=== PATIENT | male | born 1975 | race Caucasian/White ===

== ENCOUNTER 2017-03-31 23:02 | Emergency (ER) | payer MEDICAID ==
[~2017-03-31] VITALS: Ht 177.8 cm; Wt 98.2 kg
[~2017-03-31 23:02] MED LIST: CITA10TA8 PO; EMTR1TAB12 PO; RAYTAZ; RITO100C PO; Z PAK
[2017-03-31] MEDS ORDERED: SODIUM CHLORIDE 0.9% 1,000 ML IV ONE (23:53)
[2017-03-31] MEDS ORDERED: HYDROmorphone 1 MG/ML, 1ML ONE (23:56)
[2017-03-31] MEDS ORDERED: ONDANSETRON 2MG/ML, 2ML ONE (23:56)
[2017-04-01] MEDS ORDERED: SODIUM CHLORIDE FLUSH 10ML SYR IVF ONE
[2017-04-01] MEDS ORDERED: SODIUM CHLORIDE 0.9% 1,000ML IVBOLUS ONE
[2017-04-01] MEDS ORDERED: ONDANSETRON 2MG/ML, 2ML IVPush ONE
[2017-04-01] MEDS: HYDROmorphone 1 MG/ML, 1ML IVPush PRN ×2 (00:11→01:23)
[2017-04-01 00:27] LABS: ASPARTATE AMINO TRANSFERASE 23 U/L (15-37); BLOOD UREA NITROGEN 20 mg/dL (7-18)
[2017-04-01] MEDS ORDERED: HYDROmorphone 1 MG/ML, 1ML ONE ×2 (01:24→03:58)
[2017-04-01] MEDS ORDERED: OMNIPAQUE 350 MG/ML, 100ML BOTTLE ONE (03:11)
[2017-04-01] MEDS ORDERED: HYDROmorphone 1 MG/ML, 1ML IVPush PRN (04:00)
[2017-04-01 05:43] VITALS: BP 106/79
== END 2017-04-01 05:46 | disposition home or self-care (01) ==
LOC: ED 04-01 05:26
DX: K52.29 Other allergic and dietetic gastroenteritis and colitis (principal); F17.200 Nicotine dependence, unspecified, uncomplicated; Z88.1 Allergy status to other antibiotic agents
CPT/HCPCS: 36415; 74022; 74177; 76700; 80053; 81003; 83605; 83690; 85025; 96361; 96374; 96375; 96376; 99285; J1170; J2405; J7030; Q9967

== ENCOUNTER 2017-05-09 12:47 | Emergency (ER) | payer MEDICAID ==
[~2017-05-09] VITALS: Ht 177.8 cm; Wt 95.8 kg
[2017-05-09 12:52] VITALS: BP 134/93
[2017-05-09] MEDS ORDERED: ONDANSETRON 2MG/ML, 2ML IVPush ONE (13:30)
[2017-05-09] MEDS ORDERED: SODIUM CHLORIDE 0.9% 1,000ML IVBOLUS ONE (13:30)
[2017-05-09] MEDS ORDERED: SODIUM CHLORIDE FLUSH 10ML SYR IVF ONE (13:30)
[2017-05-09 13:33] LABS: BLOOD UREA NITROGEN 12 mg/dL (7-18)
[2017-05-09 13:38] LABS: ASPARTATE AMINO TRANSFERASE 22 U/L (15-37)
[2017-05-09 14:00] LABS: DIFF TOTAL CELLS COUNTED 100 CELL DIFF
[2017-05-09 14:16] LABS: VERIFY COUNTS? YES
== END 2017-05-09 18:36 | disposition left against medical advice (07) ==
LOC: ED 18:24
DX: R11.2 Nausea with vomiting, unspecified (principal)
CPT/HCPCS: 36415; 80053; 83690; 85025; 85610; 99284

== ENCOUNTER 2019-01-10 12:22 | Emergency (ER) | payer MEDICAID ==
[~2019-01-10] VITALS: Ht 177.8 cm; Wt 98.0 kg
[~2019-01-10 12:22] MED LIST changes: -EMTR1TAB12 PO; +EMTR1TAB8 PO
[2019-01-10 12:25] VITALS: BP 142/79
--- NOTE | 2019-01-10 14:39 | NUR ---
PT CALLED FOR ROOM, NO ANSWER.
--- NOTE | 2019-01-10 15:56 | NUR ---
NOT IN LOBBY AT 1435, 1515, 1530
== END 2019-01-10 15:55 | disposition left against medical advice (07) ==
LOC: ED 15:49
DX: R51 Headache (principal)
CPT/HCPCS: 99281

== ENCOUNTER 2019-09-09 13:56 | Emergency (ER) | payer MEDICAID ==
--- NOTE | 2019-09-09 14:12 | NUR ---
NO ANSWER FROM TRIAGE
--- NOTE | 2019-09-09 14:21 | NUR ---
NO ANSWER FROM TRIAGE
--- NOTE | 2019-09-09 14:32 | NUR ---
NO ANSWER FROM TRIAGE
== END 2019-09-09 14:34 | disposition left against medical advice (07) ==
LOC: ED 14:28
DX: R52 Pain, unspecified (principal); Z53.21 Procedure and treatment not carried out due to patient leaving prior to being seen by health care provider

== ENCOUNTER 2020-12-07 05:06 | Emergency (ER) | payer MEDICAID ==
[~2020-12-07] VITALS: Ht 177.8 cm; Wt 101.0 kg
[2020-12-07 06:59] VITALS: BP 123/77
--- NOTE | 2020-12-07 07:00 | NUR ---
Knee immobilizer, crutches provided prior to DC
== END 2020-12-07 07:02 | disposition home or self-care (01) ==
LOC: ED 06:27
DX: S80.02XA Contusion of left knee, initial encounter (principal); Z88.1 Allergy status to other antibiotic agents; W22.01XA Walked into wall, initial encounter; Y93.01 Activity, walking, marching and hiking; Y92.098 Other place in other non-institutional residence as the place of occurrence of the external cause; Y99.8 Other external cause status
CPT/HCPCS: 29505; 99283